=== PATIENT | female | born 1960 | race Caucasian/White ===

== ENCOUNTER 2023-10-21 20:04 | Emergency (ER) | payer BC ==
[2023-10-21 20:22] VITALS: BP 148/96; PULSE 70; RESP 18; TEMP 97.9; O2SAT 96
--- NOTE | 2023-10-21 20:52 | ERPHSYRPT ---
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 Patient states the headache is the worst of her life. Patient denies a history of headaches. Headache is constant. Mild nausea no vomiting. No associated chest pain or shortness of breath. No abdominal pain. Patient denies associated numbness tingling or weakness. Symptoms are severe in intensity. Patient rates her pain 8 out of 10. at bedside. He voices no other complaints concerns at this time. Portions of this note were created with voice recognition technology. There may be grammatical, spelling, punctuation or sound alike errors Timing/Duration: today Quality: aching Head Pain Location: global Severity of Pain-Max: severe Severity of Pain-Current: severe Recent Head Trauma: no recent headache/trauma Modifying Factors: Improves With: other Associated Symptoms: denies symptoms, No seizures, No stiff neck Previous symptoms: no prior history Allergies/Adverse Reactions: Latex, Natural Rubber Allergy (Intermediate, Verified 10/21/23 20:09) Rash rash adhesive tape Adverse Reaction (Mild, Verified 10/21/23 20:09) Skin Irritation Home Medications: Aspirin EC 81 mg [Ecotrin 81 mg] 81 mg PO DAILY 05/12/22 [History] Carvedilol 12.5 mg [Coreg 12.5 mg] 12.5 mg PO BID 05/12/22 [History] Escitalopram Oxalate [Lexapro] 10 mg PO DAILY 05/12/22 [History] Famotidine 20 mg [Pepcid 20 MG] 20 mg PO BID 05/12/22 [History] L.acidoph,Paracasei, B.lactis [Probiotic] 2 tab PO BID 05/12/22 [History] Rosuvastatin Calcium 10 mg PO DAILY 10/21/23 [History] Hx Tetanus, Diphtheria Vaccination/Date Given: No Hx Influenza Vaccination/Date Given: Yes Hx Pneumococcal Vaccination/Date Given: No Immunizations Up to Date: No Travel Risk - International Travel Have you traveled outside of the country in past 3 weeks: No - Emerging Infectious Disease Are you exhibiting symptoms associated with any current EIDs: Yes Symptoms: Headaches/Body Aches/ - Review of Systems Constitutional: No Symptoms, No Fever, No Chills Eyes: No Symptoms Ears, Nose, & Throat: No Symptoms Respiratory: No Symptoms, No Cough, No Dyspnea Cardiac: No Symptoms, No Chest Pain, No Edema, No Syncope Abdominal/Gastrointestinal: No Symptoms, No Abdominal Pain, No Nausea, No Vomiting, No Diarrhea Genitourinary Symptoms: No Symptoms, No Dysuria Musculoskeletal: No Symptoms, No Back Pain, No Neck Pain Skin: No Symptoms, No Rash Neurological: No Symptoms, No Dizziness, No Focal Weakness, No Sensory Changes Psychological: No Symptoms Endocrine: No Symptoms Hematologic/Lymphatic: No Symptoms Immunological/Allergic: No Symptoms All Other Systems: Reviewed and Negative - Past Medical History Pertinent Past Medical History: Yes Neurological History: No Pertinent History ENT History: No Pertinent History Cardiac History: Arrhythmia, High Cholesterol Respiratory History: No Pertinent History Endocrine Medical History: No Pertinent History Musculoskeletal History: No Pertinent History GI Medical History: GERD History: No Pertinent History Psycho-Social History: Depression Female Reproductive Disorders: No Pertinent History Other Medical History: colonoscopy 2017 - Past Surgical History Past Surgical History: Yes Neuro Surgical History: No Pertinent History Cardiac: No Pertinent History Respiratory: No Pertinent History Gastrointestinal: Cholecystectomy Genitourinary: No Pertinent History Musculoskeletal: No Pertinent History Female Surgical History: No Pertinent History - Social History Smoking Status: Never smoker Exposure to second hand smoke: No Drug Use: none - Nursing Vital Signs Nursing Vital Signs: Initial Vital Signs Temperature 97.9 F 10/21/23 20:12 Pulse Rate 70 10/21/23 20:12 Respiratory Rate 18 10/21/23 20:12 Blood Pressure 148/96 10/21/23 20:12 O2 Sat by Pulse Oximetry 96 10/21/23 20:12 Pain Scale Pain Intensity 8 - Physical Exam General Appearance: no apparent distress Eye Exam: PERRL/EOMI Ears, Nose, Throat Exam: normal ENT inspection, moist mucous membranes Neck Exam: normal inspection, supple, full range of motion, No meningismus Respiratory Exam: normal breath sounds, lungs clear, airway intact Cardiovascular Exam: regular rate/rhythm, normal heart sounds Gastrointestinal/Abdominal Exam: soft, No tenderness, No distention Back Exam: normal inspection, normal range of motion Extremity Exam: normal inspection, normal range of motion Mental Status Exam: alert, oriented x 3, cooperative, No agitated back stayer Exam: normal hearing, normal speech, PERRL, No facial droop Coordination/Gait Exam: normal cerebellar function Motor/Sensory Exam: no motor deficit, no sensory deficit Skin Exam: normal color, warm, dry, No rash Lymphatic Exam: No adenopathy SpO2 Interpretation: normal SpO2: 96 O2 Delivery: Room Air - Course Nursing assessment & vital signs reviewed: Yes Ordered Tests: Active Orders 24 hr Category Date Time Status AMA [Release AMA] OM.NOW Care 10/21/23 20:30 Completed - Progress Progress: unchanged Air Movement: good Progress Note: Patient 63-year-old female presents to our ED with acute onset headache approximately 1 hour ago. Headache is the worst headache of her life. Patient requires an emergent CT of her head. Our CAT scan is currently out of order. Given patient's complaints we are concerned with possible subarachnoid hemorrhage. There is a 6-hour window to see the subarachnoid on a CAT scan. Patient is approximately 1 to 2 hours then. Patient advised that she will require transfer to another facility however a mode of transportation will not be available for at least another 1 to 2 hours. Patient decided to leave AGAINST MEDICAL ADVICE and drive herself to [facility]. Portions of this note were created with voice recognition technology. There may be grammatical, spelling, punctuation or sound alike errors Complexity of problem addressed is severe acute complicated No critical care time Complex of data reviewed and analyzed is none. No specialized testing ordered as patient decided to leave AMA when she found out that we did not have a functioning CAT scan immediately available Risk of morbidity/mortality patient management is low Vital stable. Patient discharged AGAINST MEDICAL ADVICE. Patient is of sound mind. Patient is appropriate to make informed and independent medical decisions. Patient understands that leaving AGAINST MEDICAL ADVICE can result in delayed diagnosis, increased risk of morbidity, mortality, short and long-term disability including . In spite of these risks, patient has decided to leave AGAINST MEDICAL ADVICE. Patient understands that she may return to our ED at any point if she reconsiders. Patient agrees to follow-up with her primary care doctor within 48 hours for reevaluation. Patient voices no other complaints or concerns at this time. We will release patient AGAINST MEDICAL ADVICE per their request. 10/21/23 20:47 Blood Culture(s) Obtained: No Antibiotics given: No - Departure Departure Disposition: AMA Clinical Impression: Headache Condition: Stable Critical Care Time: No Referrals: SAVITA YE MD [Primary Care Provider] - Follow up/PCP as directed Additional Instructions: Discharge/Care Plan EMMA was seen on 10/21/23 in the Emergency Room. The patient was counseled regarding Diagnosis,Lab results, Imaging studies, need for follow up and when to return to the Emergency Room. Prescriptions given: Discharge Note I have spoken with the patient and/or caregivers. I have explained the patient's condition, diagnosis and treatment plan based on the information available to me at this time. I have answered the patient's and/or caregiver's questions and addressed any concerns. The patient and/or caregivers have as good understanding of the patient's diagnosis, condition and treatment plan as can be expected at this point. The vital signs have been stable. The patient's condition is stable and appropriate for discharge from the emergency department. The patient will pursue further outpatient evaluation with the primary care physician or other designated or consulting physician as outlined in the discharge instructions. The patient and/or caregivers are agreeable to this plan of care and follow-up instructions have been explained in detail. The patient and/or caregivers have received these instruction. The patient/and or caregivers are aware that any significant change in condition or worsening of symptoms should prompt an immediate return to this or the closest emergency department or call 911.
== END 2023-10-21 20:33 | disposition left against medical advice (07) ==
LOC: ED 20:04
DX: R51.9 Headache, unspecified (principal); R11.0 Nausea; E78.5 Hyperlipidemia, unspecified; Z79.899 Other long term (current) drug therapy
CPT/HCPCS: 99281